=== PATIENT | male | born 1960 | race Caucasian/White ===

== ENCOUNTER → 2021-09-21 | Outpatient (CLI) | payer BC ==
--- NOTE | 2021-09-22 04:32 | MR ---
EXAMINATION TYPE: MR ankle LT wo con DATE OF EXAM: 09/21/2021 COMPARISON: None HISTORY: Left ankle pain Multiplanar multiecho imaging of the left ankle with no contrast. There is 1.2 cm area of bone edema and increased signal in the medial dome of the talus. No fracture line seen. The ankle mortise is anatomic. The collateral ligaments are intact. Distal tibia and fibul a appear intact. The Achilles tendon is intact. Plantar fascia appears normal. The medial and lateral flexor tendons appear intact. There is a mild ankle joint effusion. The tarsal bones appear intact. There is plantar calcaneal spurring. No evidence of a soft tissue mass. IMPRESSION: There is ankle joint effusion consistent with some nonspecific synovitis. No fracture seen. There is some edema in the medial dome of the talus that could relate to a bone bruise. No evidence of ligamen t or tendon tear.
== END | disposition home or self-care (01) ==
LOC: RADMRIMAIN 15:21
PROVIDERS: ATTEND Physician Assistant Medical
DX: M25.472 Effusion, left ankle (principal)

== ENCOUNTER → 2022-04-14 | Outpatient (CLI) | payer BC ==
--- NOTE | 2022-04-14 09:41 | US ---
EXAMINATION TYPE: US abdomen limited DATE OF EXAM: 04/14/2022 COMPARISON: NONE CLINICAL HISTORY: F10.90 ALCOHOL USE, R94.5 ABN LIVER RESULTS. Abnormal labs TECHNIQUE: Multiple sonographic images of the right upper quadrant are obtained. FINDINGS: EXAM MEASUREMENTS: Liver Length: 16.1 cm Gallbladder Wall: 0.2 cm CBD: 0.4 cm Right Kidney: 11.3 x 5.3 x 5.1 cm Pancreas: Tail obscured by overlying bowel gas. Echogenic in appearance. Liver: Increased attenuation, decreased visualization of vessels suggestive of fatty infiltrate. Ec hogenic and coarse in appearance. Gallbladder: wnl Evidence for sonographic Higuera's sign: neg CBD: wnl Right Kidney: No hydronephrosis or masses seen IMPRESSION: 1. Mild fatty infiltration of the liver.
== END | disposition home or self-care (01) ==
LOC: RADUSWWP 08:47
PROVIDERS: ATTEND Family Medicine
DX: K76.0 Fatty (change of) liver, not elsewhere classified (principal); F10.90 Alcohol use, unspecified, uncomplicated; R94.5 Abnormal results of liver function studies
CPT/HCPCS: 76705

== ENCOUNTER 2024-03-22 10:18 | Emergency (ER) | payer OTHER, BC ==
--- NOTE | 2024-03-22 10:40 | ED ---
General Adult HPI - General Chief complaint: Fall Stated complaint: [facility] shoulder injury Time Seen by Provider: 03/22/24 10:33 Source: patient, RN notes reviewed Mode of arrival: ambulatory Limitations: no limitations - History of Present Illness Initial comments: Patient is a 63-year-old male presenting to the emergency department with concern for right shoulder injury. Patient was at work when he tripped and fell into a shelf. Patient hit his right shoulder on the side. Patient has discomfort 5/10. Discomfort increases to 10/10 with movement. No head injury or loss of consciousness. No other area of injury or concern. - Related Data Previous Rx's Medication Instructions Recorded Ibuprofen [Motrin] 600 mg PO Q6HR PRN #20 tab 03/22/24 Allergies Allergy/AdvReac Type Severity Reaction Status Date / Time No Known Allergies Allergy Verified 03/22/24 10:25 Review of Systems ROS Statement: Those systems with pertinent positive or pertinent negative responses have been documented in the HPI. ROS Other: All systems not noted in ROS Statement are negative. Constitutional: Denies: fever Eyes: Denies: eye pain ENT: Denies: ear pain Respiratory: Denies: dyspnea Cardiovascular: Denies: chest pain Endocrine: Denies: fatigue Gastrointestinal: Denies: abdominal pain Musculoskeletal: Reports: as per HPI. Denies: back pain Past Medical History Past Medical History: Hypertension Additional Past Surgical History / Comment(s): oral Smoking Status: Former smoker Past Alcohol Use History: Daily Past Drug Use History: None Reported General Exam Limitations: no limitations General appearance: alert, in no apparent distress Head exam: Present: normocephalic Eye exam: Present: normal appearance ENT exam: Present: normal exam Neck exam: Present: normal inspection. Absent: tenderness Respiratory exam: Present: normal lung sounds bilaterally Cardiovascular Exam: Present: regular rate, normal rhythm Expanded Peripheral pulses: 2+: Radial (R), Radial (L) GI/Abdominal exam: Present: soft. Absent: tenderness Extremities exam: Present: tenderness (Moderate to severe tenderness right upper humerus region.), other (Distally all extremities are neurovascularly intact.) Back exam: Present: normal inspection. Absent: tenderness, vertebral tenderness Neurological exam: Present: alert. Absent: motor sensory deficit Psychiatric exam: Present: normal affect, normal mood Skin exam: Present: normal color Course Vital Signs 03/22/24 10:26 Temperature 97.6 F Pulse Rate 95 Respiratory 18 Rate Blood Pressure 163/91 O2 Sat by Pulse 97 Oximetry Medical Decision Making - Medical Decision Making Was pt. sent in by a medical professional or institution (NATASHA Hook, REALTIME REPORTER, urgent care, hospital, or detention...) When possible be specific @ -Patient sent from work Did you speak to anyone other than the patient for history (EMS, parent, family, police, friend...)? What history was obtained from this source @ -No Did you review nursing and triage notes (agree or disagree)? Why? @ -I reviewed and agree with nursing and triage notes Were old charts reviewed (outside hosp., previous admission, EMS record, old EKG, old radiological studies, urgent care reports/EKG's, detention records)? Report findings @ -No old charts were reviewed Differential Diagnosis (chest pain, altered mental status, abdominal pain women, abdominal pain men, vaginal bleeding, weakness, fever, dyspnea, syncope, headache, dizziness, GI bleed, back pain, seizure, CVA, palpatations, mental health, musculoskeletal)? @ -Differential Musculoskeletal Muscular strain, contusion, ligament sprain, fracture, arthritis, septic arthritis, bursitis, cellulitis, muscle spasm, nerve compression, DVT, arterial occlusion, herpes zoster, electrolyte abnormality, tumor.... This is not meant to be in all inclusive list EKG interpreted by me (3pts min.). @ -As above X-rays interpreted by me (1pt min.). @ -X-ray right shoulder and right humerus concerning for possible inferior glenoid fracture CT interpreted by me (1pt min.). @ -None done U/S interpreted by me (1pt. min.). @ -None done What testing was considered but not performed or refused? (CT, X-rays, U/S, labs)? Why? @ -None What meds were considered but not given or refused? Why? @ -None Did you discuss the management of the patient with other professionals (professionals i.e. NATASHA Hook, REALTIME REPORTER, lab, RT, psych nurse, director social welfare, grants manager, teacher, loans officer, piano case and bench assembler)? Give summary @ -No Was smoking cessation discussed for >3mins.? @ -No Was critical care preformed (if so, how long)? @ -No Were there social determinants of health that impacted care today? How? (Homelessness, low income, unemployed, alcoholism, drug addiction, transportation, low edu. Level, literacy, decrease access to med. care, alf, rehab)? @ -No Was there de-escalation of care discussed even if they declined (Discuss DNR or withdrawal of care, Hospice)? DNR status @ -No What co-morbidities impacted this encounter? (DM, HTN, Smoking, COPD, CAD, Cancer, CVA, ARF, Chemo, Hep., AIDS, mental health diagnosis, sleep apnea, morbid obesity)? @ -None Was patient admitted / discharged? Hospital course, mention meds given and route, prescriptions, significant lab abnormalities, going to OR and other pertinent info. @ -Patient presents with shoulder pain following fall. X-rays showing concern for glenoid fracture. Patient will be discharged to follow-up with orthopedics, number provided. Patient also provided sling Undiagnosed new problem with uncertain prognosis? @ -No Drug Therapy requiring intensive monitoring for toxicity (Heparin, Nitro, Insulin, Cardizem)? @ -No Were any procedures done? @ -No Diagnosis/symptom? @ -Glenoid fracture Acute, or Chronic, or Acute on Chronic? @ -Acute Uncomplicated (without systemic symptoms) or Complicated (systemic symptoms)? @ -Default Side effects of treatment? @ -No Exacerbation, Progression, or Severe Exacerbation? @ -No Poses a threat to life or bodily function? How? (Chest pain, [place], [place], pneumonia, PE, COPD, DKA, ARF, appy, cholecystitis, CVA, Diverticulitis, Homicidal, Suicidal, threat to staff... and all critical care pts) @ -No Disposition Clinical Impression: Glenoid fracture of shoulder Disposition: HOME SELF-CARE Condition: Stable Instructions (If sedation given, give patient instructions): Shoulder Fracture in Children (ED), Shoulder Pain (ED) Additional Instructions: There is concern for shoulder fracture, please follow-up with orthopedics in the next couple of days for further evaluation, number provided. Also follow-up with [facility]. Return for increased pain, arm problems, other areas of concern. Prescription sent to pharmacy. Prescriptions: Ibuprofen [Motrin] 600 mg PO Q6HR PRN #20 tab PRN Reason: Pain Is patient prescribed a controlled substance at d/c from ED?: No Referrals: Sofia Rojas MD [Primary Care Provider] - 1-2 days Brady Espinoza MD [STAFF PHYSICIAN] - 1-2 days Time of Disposition: 11:45
[2024-03-22] MEDS: KETOROLAC 15 MG/ML 1 ML VIAL IM STA (10:52)
--- NOTE | 2024-03-22 11:14 | XR ---
EXAMINATION TYPE: XR humerus RT DATE OF EXAM: 03/22/2024 10:48 AM COMPARISON: None CLINICAL INDICATION: Male, 63 years old with history of fall; , pain TECHNIQUE: XR humerus RT examined in frontal and lateral projections. FINDINGS: No evidence of acute osseous pathology, joint dislocation, or soft tissue swelling. The rem aining portions of the visualized chest are unremarkable. IMPRESSION: No acute osseous pathology. [facility], , 03/22/2024 11:12 AM
--- NOTE | 2024-03-22 11:25 | XR ---
EXAMINATION TYPE: XR shoulder complete RT DATE OF EXAM: 03/22/2024 11:12 AM COMPARISON: None CLINICAL INDICATION: Male, 63 years old with history of fall; PHH, pain TECHNIQUE: XR shoulder complete RT; examined in AP, internally rotated and scapular Y projections. FINDINGS: There is deformity to the inferior glenoid. The remainder of the chest is unremarkable. Is mild degen eration changes of the before meals and glenohumeral joint. IMPRESSION: Deformity to the inferior right glenoid, correlate for fracture with CT. [facility], , 03/22/2024 11:23 AM
[2024-03-22] MEDS: ACET/COD 300 MG/30 MG STARTER PACK 6 TAB BTL PO STA (11:56)
[2024-03-22 12:03] VITALS: BP 149/95; PULSE 92; RESP 16; TEMP 98.3
== END 2024-03-22 12:03 | disposition home or self-care (01) ==
LOC: EC 10:18
DX: S42.141A Displaced fracture of glenoid cavity of scapula, right shoulder, initial encounter for closed fracture (principal); Z87.891 Personal history of nicotine dependence; W01.0XXA Fall on same level from slipping, tripping and stumbling without subsequent striking against object, initial encounter
CPT/HCPCS: 73030; 73060; 99283; J1885